=== PATIENT | male | born 1995 | race Caucasian/White ===

== ENCOUNTER 2017-02-14 21:01 | Emergency (ER) | payer OTHER ==
[2017-02-14 21:20] VITALS: BP 122/79; PULSE 67; TEMP 99.5; BMI 18.1
[2017-02-14] MEDS ORDERED: IBUPROFEN 400 MG TABLET (FP) PO ONE ×2 (21:56→22:00)
[2017-02-14] MEDS ORDERED: DIPHTH,PERTUSS(ACELL),TET 0.5 ML DISP.SYRIN IM ONE (21:57)
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
== END 2017-02-15 00:42 | disposition home or self-care (01) ==
LOC: JER 21:01 → JERFT 21:01 → JER 02-15 00:42
PROC: 0CQ1XZZ Repair Lower Lip, External Approach (ICD-10-PCS; principal; 2017-02-14)
DX: S01.511A Laceration without foreign body of lip, initial encounter (principal); Y04.2XXA Assault by strike against or bumped into by another person, initial encounter; Y93.89 Activity, other specified; Y92.9 Unspecified place or not applicable; F17.210 Nicotine dependence, cigarettes, uncomplicated
CPT/HCPCS: 12011-25; 70486-TC; 90715; 99282-25

== ENCOUNTER 2017-02-20 13:29 | Emergency (ER) | payer OTHER ==
[2017-02-20 13:33] VITALS: BP 114/65; PULSE 745; TEMP 98.2; BMI 18.8
--- NOTE | 2017-02-20 14:16 | PDOC ---
Suture Removal/Wound Check HPI - History of Present Illness Chief Complaint: Suture/Staple Removal(Here) Stated Complaint: STAPLE/SUTURE REMOVAL Time Seen by Provider: 02/20/17 13:50 History Source: Yes: Patient Exam Limitations: Yes: No Limitations Treated at: [facility] Date of Last ED visit: 02/21/17 - Previous ED Treatment Type of procedure performed on last visit: Yes: Laceration Repair Tetanus Immunization: Yes: Up to Date, Given at last ED visit Past History - Travel Traveled outside of the country in the last 30 days: No - Past Medical History Allergies/Adverse Reactions: Allergies No Known Allergies Allergy (Verified 02/20/17 13:31) Home Medications: Ambulatory Orders Cephalexin [Keflex] 500 mg PO Q6H #20 capsule 02/16/17 General: Yes: no pertinent history - Family History Significant Family History: Yes: no pertinent family hx - Immunization History Immunizations Up to Date: Yes - Social History Smoking Status: Current every day smoker Number of Ciarettes Per Day: 1 Patient Lives Alone: No Lives With: parents Suture Removal/Wound Check PE - Physical Exam Laceration/Wound Check Symptoms: reports: None Current Severity Level: None Maximum Severity Level: None Pain Localization: None Location of Laceration/Wound: bilateral: Lip *Review of Systems - Review of Systems Able to Perform ROS?: Yes Constitutional: No: Symptoms Reported HEENTM: No: Symptoms Reported Respiratory: No: Symptoms reported Musculoskeletal: No: Symptoms Reported Integumentary: No: Symptoms Reported Neurological: No: Symptoms reported Endocrine: No: Symptoms Reported Hematologic/Lymphatic: No: Symptoms Reported Medical Decision Making - Medical Decision Making 02/20/17 14:18 Removed 5 sutures without difficulty to the midportion of lower lip. Absorbable sutures still noted and intact. Gingiva intact. Will discharge home with supportive care *DC/Admit/Observation/Transfer Diagnosis at time of Disposition: Visit for suture removal - Discharge Dispostion Disposition: HOME Condition at time of disposition: Good - Patient Instructions Printed Discharge Instructions: DI for Suture Removal Additional Instructions: Keep area nd dry and apply bacitracin to the affected area for the next 2 days. Take Motrin or Tylenol for discomfort
== END 2017-02-20 14:26 | disposition home or self-care (01) ==
LOC: JERFT 13:29
DX: Z48.02 Encounter for removal of sutures (principal)
CPT/HCPCS: 99281-25